=== PATIENT | female | born 1955 | race Caucasian/White ===

== ENCOUNTER 2017-05-01 05:59 | Day surgery (SDC) | payer MEDICARE ==
[~2017-05-01] VITALS: Ht 160 cm; Wt 72.6 kg
[~2017-05-01 05:59] MED LIST: ACCUPRIL20 MG PO; ADDERALL20 MG PO; ADVAIR DISK1 INH; ALBUTEROL S2.5 MG/.5 IN; ARTHROTEC 50 PO; AUGMENTIN875TAB OR; BACTRIM DS1 TAB PO; CARISOPRODOL350 MG PO; CIPROFLOXACN500 MG PO; CITALOPRAM40 MG PO; CLEOCIN VAG2 % VA; DIFLUCAN150 MG OR; ENOXAPARIN40 MG/0.4 SC; FLUZONE SPLT1 M1 IM; HYDROCO/APAP1 T10 PO; HYDROCODONE/ACE1 TAB PO; KEFLEX500 MG PO; LIDOCAINE51; LISINOP/HCTZ1 TAB PO; LISINOPRIL10 MG PO; LORTAB5 PO; MELOXICAM15 MG PO; METROGEL VAG0.75 % VA; MIRALAX3350 N1 PO; NO MEDS; NYSTATIN100000 M1 PO; OXYCO/APAP1 TA5 PO; PREDNISONE10 MG PO; PRILOSEC20 MG PO; QUINAPRIL20 MG PO; SERTRALINE HCL100 MG PO; SERTRALINE100 MG PO; SOLU-MEDROL125 MG IM; THEOPHYLLINE E100 MG PO; TIZANIDINE HCL4 M1 PO; TOVIAZ8 MG PO; TRAZODONE100 MG PO; TYLENOL # 31 TA1 PO; VICODIN1 TAB PO; VOLTAREN1%GEL TOP; ZOFRAN4 MG OR; ZOLOFT100 MG PO; ZOLPIDEM10 M1 PO; ZOLPIDEM5 M1 PO; ZOSTAVAX SC; ZOVIRAX200 MG PO
[2017-05-01 07:42] VITALS: BP 121/75
[2017-05-01] MEDS ORDERED: NORCO1 TA2 PO (08:09)
== END 2017-05-01 08:12 | disposition home or self-care (01) ==
LOC: ORM 05:59
PROVIDERS: ATTEND Anesthesiology Pain Medicine
PROC: 3E0T33Z Introduction of Anti-inflammatory into Peripheral Nerves and Plexi, Percutaneous Approach (ICD-10-PCS; principal; 2017-05-01)
PROC: 3E0T3BZ Introduction of Anesthetic Agent into Peripheral Nerves and Plexi, Percutaneous Approach (ICD-10-PCS; 2017-05-01)
PROC: 3E0T33Z Introduction of Anti-inflammatory into Peripheral Nerves and Plexi, Percutaneous Approach (ICD-10-PCS; 2017-05-01)
PROC: 3E0T3BZ Introduction of Anesthetic Agent into Peripheral Nerves and Plexi, Percutaneous Approach (ICD-10-PCS; 2017-05-01)
PROC: 3E0T33Z Introduction of Anti-inflammatory into Peripheral Nerves and Plexi, Percutaneous Approach (ICD-10-PCS; 2017-05-01)
PROC: 3E0T3BZ Introduction of Anesthetic Agent into Peripheral Nerves and Plexi, Percutaneous Approach (ICD-10-PCS; 2017-05-01)
PROC: 3E0T33Z Introduction of Anti-inflammatory into Peripheral Nerves and Plexi, Percutaneous Approach (ICD-10-PCS; 2017-05-01)
DX: M54.5 Low back pain (principal)

== ENCOUNTER 2020-10-17 09:59 | Emergency (ER) | payer MEDICARE, MEDICAID ==
[~2020-10-17 09:59] MED LIST changes: +NORCO1 TA2 PO
[2020-10-17] MEDS ORDERED: ZESTRIL10 M1 PO (10:28)
[2020-10-17] MEDS ORDERED: TRAZODONE50 MG PO (10:28)
[2020-10-17] MEDS ORDERED: ZOLOFT25 MG PO (10:29)
[2020-10-17] MEDS ORDERED: CYCLOBENZAPRINE10 MG PO (11:38)
[2020-10-17 11:48] VITALS: BP 138/80
== END 2020-10-17 11:56 | disposition home or self-care (01) ==
LOC: ED 09:59
DX: M25.512 Pain in left shoulder (principal); M54.5 Low back pain; M54.2 Cervicalgia; I10 Essential (primary) hypertension; F32.9 Major depressive disorder, single episode, unspecified; J44.9 Chronic obstructive pulmonary disease, unspecified; Z87.891 Personal history of nicotine dependence; W01.0XXA Fall on same level from slipping, tripping and stumbling without subsequent striking against object, initial encounter; Y92.009 Unspecified place in unspecified non-institutional (private) residence as the place of occurrence of the external cause

== ENCOUNTER 2021-11-16 06:04 | Emergency (ER) | payer MEDICARE, MEDICAID ==
[~2021-11-16] VITALS: Ht 160 cm; Wt 68.0 kg
[~2021-11-16 06:04] MED LIST changes: +CYCLOBENZAPRINE10 MG PO; +TRAZODONE50 MG PO; +ZESTRIL10 M1 PO; +ZOLOFT25 MG PO
[2021-11-16 06:09] VITALS: BP 143/96
[2021-11-16 06:16] VITALS: BP 151/96
[2021-11-16] MEDS ORDERED: VENTOLIN HFA IN ×2 (06:27→07:16)
[2021-11-16] MEDS ORDERED: TRELEGY ELLIPTA1 AER (06:27)
[2021-11-16 06:39] LABS: IMMATURE GRANULOCYTES 0.4 % (0.0-5.0); MEAN CELL VOLUME 98.8 fL CALC (80.0-100.0); MEAN CORPUSCULAR HGB CONC 32.4 g/dL CAL (32.0-36.0); NEUT# 7.55 thou/uL (2.00-7.15); RED BLOOD COUNT 4.34 mill/uL (4.20-5.60); RED CELL DISTRI WIDTH 13.9 % (11.5-15.5)
[2021-11-16 06:40] LABS: HEMATOCRIT 42.9 % (37.0-47.0); HEMOGLOBIN 13.9 g/dl (12.0-16.0)
[2021-11-16 06:52] VITALS: BP 149/89
[2021-11-16 06:56] LABS: ALBUMIN 4.3 g/dL (3.2-5.0); ALKALINE PHOSPHATASE 88 u/l (38-126); ANION GAP 14 (6-22 (CALC)); BUN 17 mg/dL (8-23); BUN/CREATININE RATIO 20 (12-20 (CALC)); CARBON DIOXIDE 27 mmol/l (22-30); CHLORIDE 101 mmol/l (95-108); CREATININE 0.9 mg/dL (0.5-1.0); GFR FOR AFR.AMER. > 60 ML/MIN (>=60 (CALC)); GFR OTHER RACES > 60 ML/MIN (>=60 (CALC)); POTASSIUM 4.4 mmol/l (3.5-5.1); SGOT/AST 21 u/l (9-36); SODIUM 138 mmol/l (137-146); TOTAL PROTEIN 7.2 g/dL (6.3-8.2)
[2021-11-16 07:00] VITALS: BP 135/82
[2021-11-16 07:01] LABS: BILIRUBIN, TOTAL 0.8 mg/dL (0.0-1.4)
[2021-11-16] MEDS ORDERED: MEDDOSEPAK PO (07:16)
[2021-11-16 07:29] VITALS: BP 135/82
== END 2021-11-16 07:40 | disposition home or self-care (01) ==
LOC: ED 06:04
PROVIDERS: Family Medicine
DX: J44.1 Chronic obstructive pulmonary disease with (acute) exacerbation (principal); I10 Essential (primary) hypertension; F32.A Depression, unspecified; Z20.822 Contact with and (suspected) exposure to COVID-19

== ENCOUNTER 2022-07-29 08:50 | Emergency (ER) | payer MEDICARE, MEDICAID ==
[~2022-07-29] VITALS: Ht 160 cm; Wt 72.6 kg
[2022-07-29] VITALS (7 sets, daily range): BP systolic 111–164; BP diastolic 87–91
[~2022-07-29 08:50] MED LIST changes: +MEDDOSEPAK PO; +TRELEGY ELLIPTA1 AER; +VENTOLIN HFA IN
[2022-07-29 09:27] LABS: BASO% 0.2 % (0-3); EOS% 1.3 % (0-8); HEMATOCRIT 38.7 % (37.0-47.0); HEMOGLOBIN 12.6 g/dl (12.0-16.0); IMMATURE GRANULOCYTES 0.3 % (0.0-5.0); LYMPH% 4.9 % (15-41); MEAN CELL VOLUME 95.3 fL CALC (80.0-100.0); MEAN CORPUSCULAR HGB CONC 32.6 g/dL CAL (32.0-36.0); MONO% 17.3 % (2-13); NEUT# 7.62 thou/uL (2.00-7.15); RED BLOOD COUNT 4.06 mill/uL (4.20-5.60); RED CELL DISTRI WIDTH 13.9 % (11.5-15.5)
[2022-07-29 09:40] LABS: ALBUMIN 4.2 g/dL (3.2-5.0); ALKALINE PHOSPHATASE 68 u/l (38-126); BUN 20 mg/dL (8-23); BUN/CREATININE RATIO 20 (12-20 (CALC)); CARBON DIOXIDE 24 mmol/l (22-30); CHLORIDE 100 mmol/l (95-108); GFR FOR AFR.AMER. > 60 ML/MIN (>=60 (CALC)); GFR OTHER RACES 55 ML/MIN (>=60 (CALC)); POTASSIUM 3.6 mmol/l (3.5-5.1); SGOT/AST 29 u/l (9-36); TOTAL PROTEIN 7.3 g/dL (6.3-8.2)
[2022-07-29 09:41] LABS: ANION GAP 11 (6-22 (CALC)); BILIRUBIN, TOTAL 0.2 mg/dL (0.02-1.3); SODIUM 131 mmol/l (137-146)
[2022-07-29] MEDS ORDERED: PAXLOVID PO (11:53)
== END 2022-07-29 12:24 | disposition home or self-care (01) ==
LOC: ED 08:50
PROVIDERS: Family Medicine
DX: U07.1 COVID-19 (principal); K82.8 Other specified diseases of gallbladder; K83.8 Other specified diseases of biliary tract; I10 Essential (primary) hypertension; J44.9 Chronic obstructive pulmonary disease, unspecified; K21.9 Gastro-esophageal reflux disease without esophagitis; F32.A Depression, unspecified; F17.210 Nicotine dependence, cigarettes, uncomplicated
CPT/HCPCS: Q9967